=== PATIENT | female | born 1995 | race Caucasian/White ===

== ENCOUNTER 2018-05-11 09:38 | Emergency (ER) | payer BC, MEDICAID ==
[~2018-05-11 09:38] MED LIST: ACY200 PO; BACDS PO; BUDE90AE2 IH; DICY10CA11 PO; ESTROGEN PATCH TD; FISH OIL; LEVA15HF IH; LEVO150T78 PO; LOR5 PO; MULTIVIT; RANI25VI5 INJ; RESCUE INHALER; URSO500T5 PO; VIT D
[2018-05-11 10:00] VITALS: BP 100/70
[2018-05-11] MEDS ORDERED: IBUPROFEN 600 MG TAB PO ONE (10:15)
[2018-05-11] MEDS ORDERED: NS(*) 0.9% 1000 ML BAG 1,000 ML IV ONE (10:15)
[2018-05-11 10:32] LABS: PLATELET COUNT, AUTOMATED 170 K/uL (150-450)
[2018-05-11] MEDS: ONDANSETRON 4 MG/2 ML VIAL IVP ONE (10:50)
--- NOTE | 2018-05-11 11:23 | RADIOLOGY IMAGING REPORT ---
FACILITY: [facility] PATIENT NAME: Leyda Trevino : 1995 MR: [id number] V: [id number] EXAM DATE: ORDERING PHYSICIAN: HOLLY SCHULER TECHNOLOGIST: Location: [facility] Patient: Leyda Trevino : 1995 Visit/Account:[id number] Date of Sevice: 05/11/2018 CHEST PA AND LAT COMPARISONS: 2 view chest dated July 20, 2013 ADDITIONAL PERTINENT HISTORY: Fever FINDINGS: Cardiomediastinal silhouette: Negative. Pulmonary vasculature: Negative. Lung ga: Negative. Pleural spaces: Negative. Osseous structures: Patient status post previous posterior interbody fusion of the mid thoracic spin e through the upper lumbar spine. No acute appearing bony abnormalities. Surrounding soft tissues: Negative. IMPRESSION: No evidence of acute cardiopulmonary disease. Report Dictated By: Kei Aparicio MD at 05/11/2018 11:18 AM Report E-Signed By: Kei Aparicio MD at 05/11/2018 11:19 AM WSN:[email or web address]
--- NOTE | 2018-05-11 11:51 | ER Report ---
History and Physical Time Seen By MD: 11:45 Hx. of Stated Complaint: [facility], her strep and mono test were negative. however her temp was 103.8, and she was tachycardic at 135. she is complaining of a swollen throat, dizzy spells. pt developed red blotchy spots to legs that are painfult to the touch. 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 She has no known sick contacts, has not been on any immunocompromising medications recently, and no recent travel. She has been tolerating fluids, denies abdominal pain, vomiting, diarrhea, constipation, any UTI symptoms, or headaches. REVIEW OF SYSTEMS: Constitutional: above Eyes: No discharge. ENT: above Cardiovascular: No chest pain, no palpitations. Respiratory: No cough, no shortness of breath. Gastrointestinal: No abdominal pain, no vomiting; mild nausea Genitourinary: No hematuria. Musculoskeletal: No back pain. Skin: above Neurological: No headache. Remainder of the 14 system rev: Yes Allergies: Coded Allergies: albuterol (Verified Allergy, Unknown, 07/30/14) lorazepam (Verified Allergy, Unknown, 07/30/14) Uncoded Allergies: antibiotic unknown (Allergy, Mild, hives, 11/14/13) PLATELETS (Allergy, Unknown, 07/30/14) Home Meds Reported Medications Levothyroxine Sodium (LEVOTHYROXINE SODIUM) 150 Mcg Tablet, 120 MCG PO QDAY 07/30/14 [Estrogen Patch] No Conflict Check, 1 PATCH TD QWEEKF 07/30/14 Budesonide (PULMICORT FLEXHALER) 90 Mcg Aer.pow.ba, 80 MCG IH BID, MCG INHALE 90 MCG TWICE DAILY 07/30/14 Levalbuterol Tartrate (XOPENEX HFA) 15 Gm Hfa.aer.ad, 15 GM IH BID PRN for SHORTNESS OF BREATH 07/30/14 [Rescue Inhaler] No Conflict Check 05/12/12 Ranitidine Hcl (Zantac) 25 Mg/1 Ml Vial, 50 MG INJ Q12H 05/12/12 [Vit D] No Conflict Check, 0 Refills 06/10/11 Discontinued Reported Medications Dicyclomine Hcl (DICYCLOMINE HCL) 10 Mg Capsule, 10 MG PO QID PRN for PAIN, CAPSULE 07/30/14 Hx Smoking: No Smoking Status: Never Smoker Exposure to Second Hand Smoke?: No Constitutional Vital Sign - Last 24 Hours 05/11/18 05/11/18 05/11/18 05/11/18 09:43 09:44 09:53 10:00 Temp 103.0 Pulse 123 130 Resp 18 B/P (MAP) 103/64 (77) 103/64 100/70 (80) Pulse Ox 95 98 O2 Delivery Room Air 05/11/18 05/11/18 05/11/18 05/11/18 10:08 10:23 10:38 10:53 Pulse 121 110 106 100 Pulse Ox 93 92 95 95 05/11/18 05/11/18 05/11/18 10:58 11:13 11:28 Pulse 108 98 99 Pulse Ox 95 94 94 Physical Exam General Appearance: The patient is alert, has no immediate need for airway protection and no signs of toxicity. [ ] Eyes: Pupils equal and round no pallor or injection. ENT, Mouth: Mucous membranes are moist. Ulcerations noted r upper soft palate, l upper, l lower lip. Mild erythema of tonsils; no exudates. No lip involvement Respiratory: There are no retractions, lungs are clear to auscultation. Cardiovascular: tachycardia, no murmurs Gastrointestinal: Abdomen is soft and non tender, no masses, bowel sounds normal. Neurological: alert, oriented x 3 Skin: warm and dry; 1-2 cm mildly tender patches/plaques noted on anterior legs. No palm/sole involvement Musculoskeletal: Neck is supple non tender. Extremities are nontender (other than exanthem above), nonswollen and have full range of motion. DIFFERENTIAL DIAGNOSIS: After history and physical exam differential diagnosis was considered for sepsis, menigococcemia, lyme or other arthropod dis, syphillis, or other emergent disease Medical Decision Making Data Points Result Diagram: 05/11/18 1015 05/11/18 1015 Laboratory Hematology Test 05/11/18 10:15 05/11/18 10:27 Red Blood Count 3.97 M/uL (4.17-5.56) Mean Corpuscular Volume 95.4 fL (80.0-96.0) Mean Corpuscular Hemoglobin 33.3 pg (26.0-33.0) Mean Corpuscular Hemoglobin Concent 34.9 g/dL (32.0-36.0) Red Cell Distribution Width 14.4 % (11.5-14.5) Mean Platelet Volume 7.9 fL (7.2-11.1) Neutrophils (%) (Auto) 79.6 % (39.4-72.5) Lymphocytes (%) (Auto) 10.9 % (17.6-49.6) Monocytes (%) (Auto) 9.1 % (4.1-12.4) Eosinophils (%) (Auto) 0.1 % (0.4-6.7) Basophils (%) (Auto) 0.3 % (0.3-1.4) Nucleated RBC Relative Count (auto) 0.0 /100WBC Neutrophils # (Auto) 7.6 K/uL (2.0-7.4) Lymphocytes # (Auto) 1.0 K/uL (1.3-3.6) Monocytes # (Auto) 0.9 K/uL (0.3-1.0) Eosinophils # (Auto) 0.0 K/uL (0.0-0.5) Basophils # (Auto) 0.0 K/uL (0.0-0.1) Nucleated RBC Absolute Count (auto) 0.00 K/uL Sodium Level 140 mmol/L (137-145) Potassium Level 3.5 mmol/L (3.5-5.0) Chloride Level 103 mmol/L (98-107) Carbon Dioxide Level 24 mmol/L (22-31) Blood Urea Nitrogen 12 mg/dl (7-18) Creatinine 0.90 mg/dl (0.52-1.04) Glomerular Filtration Rate Calc > 60.0 Random Glucose 96 mg/dl (75-110) Calcium Level 8.7 mg/dl (8.4-10.2) Total Bilirubin 0.8 mg/dl (0.2-1.3) Aspartate Amino Transf (AST/SGOT) 33 U/L (0-35) Alanine Aminotransferase (ALT/SGPT) 43 U/L (0-56) Alkaline Phosphatase 97 U/L (0-126) Total Protein 7.2 g/dl (6.3-8.2) Albumin 4.2 g/dl (3.5-5.0) Lipase 54 U/L (23-300) Urine Color Yellow Urine Clarity Clear Urine pH 6.5 pH (4.8-9.5) Urine Specific [place] 1.010 Urine Protein Trace mg/dL (NEGATIVE) Urine Glucose (UA) Negative mg/dL (NEGATIVE) Urine Ketones Negative mg/dL (NEGATIVE) Urine Blood Trace intact (NEGATIVE) Urine Nitrite Negative (NEGATIVE) Urine Bilirubin Negative (NEGATIVE) Urine Urobilinogen 0.2 mg/dL (0.2-1.9) Urine Leukocyte Esterase Negative (NEGATIVE) Urine RBC <1 /HPF (0-2/HPF) Urine WBC 1 /HPF (0-5/HPF) Urine Squamous Epithelial Cells None /LPF (</=FEW) Urine Bacteria Negative /HPF (NONE-FEW) Urine Mucus Few /HPF (NONE-FEW) Urine HCG, Qualitative Negative (NEGATIVE) Chemistry Test 05/11/18 10:15 05/11/18 10:27 White Blood Count 9.6 k/uL (4.5-11.0) Red Blood Count 3.97 M/uL (4.17-5.56) Hemoglobin 13.2 g/dL (12.0-16.0) Hematocrit 37.9 % (34.0-47.0) Mean Corpuscular Volume 95.4 fL (80.0-96.0) Mean Corpuscular Hemoglobin 33.3 pg (26.0-33.0) Mean Corpuscular Hemoglobin Concent 34.9 g/dL (32.0-36.0) Red Cell Distribution Width 14.4 % (11.5-14.5) Platelet Count 170 K/uL (150-450) Mean Platelet Volume 7.9 fL (7.2-11.1) Neutrophils (%) (Auto) 79.6 % (39.4-72.5) Lymphocytes (%) (Auto) 10.9 % (17.6-49.6) Monocytes (%) (Auto) 9.1 % (4.1-12.4) Eosinophils (%) (Auto) 0.1 % (0.4-6.7) Basophils (%) (Auto) 0.3 % (0.3-1.4) Nucleated RBC Relative Count (auto) 0.0 /100WBC Neutrophils # (Auto) 7.6 K/uL (2.0-7.4) Lymphocytes # (Auto) 1.0 K/uL (1.3-3.6) Monocytes # (Auto) 0.9 K/uL (0.3-1.0) Eosinophils # (Auto) 0.0 K/uL (0.0-0.5) Basophils # (Auto) 0.0 K/uL (0.0-0.1) Nucleated RBC Absolute Count (auto) 0.00 K/uL Glomerular Filtration Rate Calc > 60.0 Calcium Level 8.7 mg/dl (8.4-10.2) Total Bilirubin 0.8 mg/dl (0.2-1.3) Aspartate Amino Transf (AST/SGOT) 33 U/L (0-35) Alanine Aminotransferase (ALT/SGPT) 43 U/L (0-56) Alkaline Phosphatase 97 U/L (0-126) Total Protein 7.2 g/dl (6.3-8.2) Albumin 4.2 g/dl (3.5-5.0) Lipase 54 U/L (23-300) Urine Color Yellow Urine Clarity Clear Urine pH 6.5 pH (4.8-9.5) Urine Specific [place] 1.010 Urine Protein Trace mg/dL (NEGATIVE) Urine Glucose (UA) Negative mg/dL (NEGATIVE) Urine Ketones Negative mg/dL (NEGATIVE) Urine Blood Trace intact (NEGATIVE) Urine Nitrite Negative (NEGATIVE) Urine Bilirubin Negative (NEGATIVE) Urine Urobilinogen 0.2 mg/dL (0.2-1.9) Urine Leukocyte Esterase Negative (NEGATIVE) Urine RBC <1 /HPF (0-2/HPF) Urine WBC 1 /HPF (0-5/HPF) Urine Squamous Epithelial Cells None /LPF (</=FEW) Urine Bacteria Negative /HPF (NONE-FEW) Urine Mucus Few /HPF (NONE-FEW) Urine HCG, Qualitative Negative (NEGATIVE) Urinalysis Test 05/11/18 10:27 Urine Color Yellow Urine Clarity Clear Urine pH 6.5 pH (4.8-9.5) Urine Specific [place] 1.010 Urine Protein Trace mg/dL (NEGATIVE) Urine Glucose (UA) Negative mg/dL (NEGATIVE) Urine Ketones Negative mg/dL (NEGATIVE) Urine Blood Trace intact (NEGATIVE) Urine Nitrite Negative (NEGATIVE) Urine Bilirubin Negative (NEGATIVE) Urine Urobilinogen 0.2 mg/dL (0.2-1.9) Urine Leukocyte Esterase Negative (NEGATIVE) Urine RBC <1 /HPF (0-2/HPF) Urine WBC 1 /HPF (0-5/HPF) Urine Squamous Epithelial Cells None /LPF (</=FEW) Urine Bacteria Negative /HPF (NONE-FEW) Urine Mucus Few /HPF (NONE-FEW) Urine HCG, Qualitative Negative (NEGATIVE) ED Course/Re-evaluation ED Course Pt appears well, though febrile and tachycardic; findings are most c/w viral/vasculitis, as skin findings are c/w erythema nodosum. Improves with IVF, labs/imaging/ua unremarkable for e/o bacterial illness; this is most likely viral though I councelled pt on potential for vasculitis, neoplastic cause; she understands need to folllow up closely with pcm and need for further referral if symptoms do not resolve; she understands strict rtn precautions for worsening symptoms or any concerns. Decision to Disposition Date: May 11, 2018 Decision to Disposition Time: 13:45 Depart Departure Latest Vital Signs Vital Signs Date Time Temp Pulse Resp B/P (MAP) Pulse Ox O2 Delivery O2 Flow Rate FiO2 05/11/18 11:28 99 94 05/11/18 10:00 100/70 (80) 05/11/18 09:44 103.0 18 Room Air Impression: Primary Impression: Febrile illness, acute Additional Impression: Erythema nodosum Condition: Improved Disposition: HOME OR SELF-CARE Referrals: TODD HAWK MD (PCP) 5 Days Departure Forms: ER Transition Record, Medications Reconciliation, Off Work/School Form, School or Work Release?: Work Number of days to be released: 2 Patient Portal Information Patient Instructions: Fever in Adults (ED) Additional Instructions: As we discussed, please return immediately if feeling worse, or for new or different concerns. The area on your legs is called erythema nodosum. This can be associated with viruses but can also be associated with vasculitis or other conditions. If your symptoms do not improve in the next 3-5 days, please seek further care or return to the ED for further assessment. Problem Qualifiers HOLLY SCHULER MD May 11, 2018 11:51
== END 2018-05-11 13:28 | disposition home or self-care (01) ==
LOC: ER 09:53
DX: R50.9 Fever, unspecified (principal); L52 Erythema nodosum
CPT/HCPCS: 81001; 81025; 83690; 85025; 96360; 99283; J7030; 71046; 82040; 82247; 82310; 82374; 82435; 82565; 82947; 84075; 84132; 84155; 84295; 84450; 84460; 84520; J2405

== ENCOUNTER → 2018-06-24 | Outpatient (CLI) | payer BC ==
[~2018-06-24] MED LIST changes: +ASPI-1471 PO
[2018-06-24 13:31] LABS: PLATELET COUNT, AUTOMATED 228 K/uL (150-450)
[2018-06-24 14:29] LABS: INR 0.96
== END ==
LOC: LAB 13:10
PROVIDERS: ATTEND Internal Medicine
DX: C49.9 Malignant neoplasm of connective and soft tissue, unspecified (principal)
CPT/HCPCS: 36415; 82040; 82247; 82310; 82374; 82435; 82565; 82947; 83615; 84075; 84132; 84155; 84295; 84439; 84443; 84450; 84460; 84520; 85025; 85379; 85610; 85651; 86140

== ENCOUNTER 2018-06-28 16:12 | Emergency (ER) | payer BC ==
--- NOTE | 2018-06-28 16:32 | ER Report ---
History and Physical Time Seen By MD: 16:32 Hx. of Stated Complaint: Pt. having chest pain, but with recent cold with productive cough with clear/yellow/thick sputum. 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 Febrile >103 over a month ago, told viral. Afebrile in triage. Well-appearing. HPI/ROS CHIEF COMPLAINT: Shortness of breath, chest pain HISTORY OF PRESENT ILLNESS: 22-year-old female patient presents to emergency room with complaint shortness of breath and chest pain. Patient states that she's been having problems since this morning. She states she woke up about 4:00 in the morning and was feeling short of breath. She states she felt as if she is unable to take deep breath. She felt very congested. She did get up and move around and that seemed to help considerably. She denies having any fevers, chills, nausea or vomiting. Patient states she does have a cough and does have shortness of breath. States the chest pain is worse with deep inspiration. She states she is not taking any medication for this. REVIEW OF SYSTEMS: Respiratory: As noted above Cardiovascular: As noted above Gastrointestinal: No vomiting, no abdominal pain. Musculoskeletal: No back pain. Allergies: Coded Allergies: albuterol (Verified Allergy, Unknown, 06/28/18) lorazepam (Verified Allergy, Unknown, 06/28/18) Uncoded Allergies: antibiotic unknown (Allergy, Mild, hives, 11/14/13) PLATELETS (Allergy, Unknown, 07/30/14) Home Meds Active Scripts Levalbuterol Hcl (XOPENEX) 1.25 Mg/3 Ml Vial.neb, 1.25 MG IH Q4-6H, #20 VIAL Prov:SAILAJA SHRESTHA [facility] 06/28/18 Prednisone (PREDNISONE) 20 Mg Tablet, 40 MG PO DAILY, #10 TAB Prov:SAIALJA SHRESTHA [facility] 06/28/18 Azithromycin 250 Mg Tab (AZITHROMYCIN 250 MG TAB) 250 Mg Tablet, 1 TAB PO QDAY, #6 TAB Take 2 tabs today and then 1 tab a day until gone. Prov:SAILAJA SHRESTHA [facility] 06/28/18 Reported Medications Aspirin (ASPIR 81) 81 Mg Tablet.dr, 81 MG PO QDAY, TAB 06/05/18 Budesonide (PULMICORT FLEXHALER) 90 Mcg Aer.pow.ba, 80 MCG IH BID, MCG INHALE 90 MCG TWICE DAILY 07/30/14 [Rescue Inhaler] No Conflict Check 05/12/12 [Vit D] No Conflict Check, 0 Refills 06/10/11 Past Medical/Surgical History Patient has a past medical history of DVT, Harrington sarcoma. Patient has a surgical history of a craniotomy to remove tumor, Broviac place ment, cervical fusion, bone marrow transplant. Reviewed Nurses Notes: Yes Hx Smoking: No Smoking Status: Never Smoker Exposure to Second Hand Smoke?: No Constitutional Vital Sign - Last 24 Hours 06/28/18 06/28/18 06/28/18 06/28/18 16:17 16:18 16:30 16:45 Pulse 102 90 95 Resp 16 24 7 B/P (MAP) 145/79 (101) 145/79 123/44 (70) Pulse Ox 95 97 O2 Delivery Room Air 06/28/18 06/28/18 06/28/18 06/28/18 16:50 16:55 17:00 17:01 Pulse 95 102 109 Resp 24 16 16 B/P (MAP) 104/51 (68) 06/28/18 06/28/18 06/28/18 06/28/18 17:05 17:10 17:25 17:30 Pulse 117 116 Resp 27 33 14 B/P (MAP) 117/82 (94) Pulse Ox 97 97 98 06/28/18 06/28/18 06/28/18 06/28/18 17:40 17:45 18:00 18:05 Pulse 121 113 114 107 Resp 15 15 11 12 B/P (MAP) 110/61 (77) Pulse Ox 96 98 06/28/18 06/28/18 06/28/18 06/28/18 18:20 18:30 18:35 18:40 Pulse 112 111 110 Resp 12 9 9 B/P (MAP) 116/47 (70) Pulse Ox 97 97 98 Physical Exam General Appearance: The patient is alert, has no immediate need for airway protection and no current signs of toxicity. Respiratory: Chest is non tender, lungs are diminished to auscultation. Cardiac: regular rate and rhythm Gastrointestinal: Abdomen is soft and non tender, no masses, bowel sounds normal. Musculoskeletal: Neck: Neck is supple and non tender. Extremities have full range of motion and are non tender. Skin: No rashes or lesions. DIFFERENTIAL DIAGNOSIS: After history and physical exam differential diagnosis was considered for shortness of breath including but not limited to pulmonary infectious process, COPD, asthma, pulmonary embolus and congestive heart failure. Medical Decision Making Data Points Result Diagram: 06/28/18 1650 06/28/18 1650 Laboratory Hematology Test 06/28/18 16:50 06/28/18 17:46 Red Blood Count 4.05 M/uL (4.17-5.56) Mean Corpuscular Volume 96.1 fL (80.0-96.0) Mean Corpuscular Hemoglobin 32.8 pg (26.0-33.0) Mean Corpuscular Hemoglobin Concent 34.1 g/dL (32.0-36.0) Red Cell Distribution Width 14.7 % (11.5-14.5) Mean Platelet Volume 7.3 fL (7.2-11.1) Neutrophils (%) (Auto) 58.5 % (39.4-72.5) Lymphocytes (%) (Auto) 30.4 % (17.6-49.6) Monocytes (%) (Auto) 8.7 % (4.1-12.4) Eosinophils (%) (Auto) 1.9 % (0.4-6.7) Basophils (%) (Auto) 0.5 % (0.3-1.4) Nucleated RBC Relative Count (auto) 0.1 /100WBC Neutrophils # (Auto) 4.6 K/uL (2.0-7.4) Lymphocytes # (Auto) 2.4 K/uL (1.3-3.6) Monocytes # (Auto) 0.7 K/uL (0.3-1.0) Eosinophils # (Auto) 0.1 K/uL (0.0-0.5) Basophils # (Auto) 0.0 K/uL (0.0-0.1) Nucleated RBC Absolute Count (auto) 0.00 K/uL D-Dimer Quantitative (PE/DVT) 0.37 ug/ml (0-0.50) Sodium Level 141 mmol/L (137-145) Potassium Level 3.5 mmol/L (3.5-5.0) Chloride Level 101 mmol/L (98-107) Carbon Dioxide Level 27 mmol/L (22-31) Blood Urea Nitrogen 20 mg/dl (7-18) Creatinine 1.00 mg/dl (0.52-1.04) Glomerular Filtration Rate Calc > 60.0 Random Glucose 92 mg/dl (75-110) Calcium Level 9.4 mg/dl (8.4-10.2) Total Bilirubin 0.3 mg/dl (0.2-1.3) Aspartate Amino Transf (AST/SGOT) 31 U/L (0-35) Alanine Aminotransferase (ALT/SGPT) 64 U/L (0-56) Alkaline Phosphatase 131 U/L (0-126) Troponin I < 0.012 ng/ml Total Protein 7.8 g/dl (6.3-8.2) Albumin 4.3 g/dl (3.5-5.0) Human Chorionic Gonadotropin, Qual Negative (NEGATIVE) Urine Color Yellow Urine Clarity Clear Urine pH 6.0 pH (4.8-9.5) Urine Specific [place] 1.021 Urine Protein Negative mg/dL (NEGATIVE) Urine Glucose (UA) Negative mg/dL (NEGATIVE) Urine Ketones Negative mg/dL (NEGATIVE) Urine Blood Negative (NEGATIVE) Urine Nitrite Negative (NEGATIVE) Urine Bilirubin Negative (NEGATIVE) Urine Urobilinogen Negative mg/dL (0.2-1.9) Urine Leukocyte Esterase Negative (NEGATIVE) Urine RBC None /HPF (0-2/HPF) Urine WBC <1 /HPF (0-5/HPF) Urine Squamous Epithelial Cells None /LPF (</=FEW) Urine Bacteria Negative /HPF (NONE-FEW) Urine Mucus Few /HPF (NONE-FEW) Chemistry Test 06/28/18 16:50 06/28/18 17:46 White Blood Count 7.8 k/uL (4.5-11.0) Red Blood Count 4.05 M/uL (4.17-5.56) Hemoglobin 13.3 g/dL (12.0-16.0) Hematocrit 38.9 % (34.0-47.0) Mean Corpuscular Volume 96.1 fL (80.0-96.0) Mean Corpuscular Hemoglobin 32.8 pg (26.0-33.0) Mean Corpuscular Hemoglobin Concent 34.1 g/dL (32.0-36.0) Red Cell Distribution Width 14.7 % (11.5-14.5) Platelet Count 221 K/uL (150-450) Mean Platelet Volume 7.3 fL (7.2-11.1) Neutrophils (%) (Auto) 58.5 % (39.4-72.5) Lymphocytes (%) (Auto) 30.4 % (17.6-49.6) Monocytes (%) (Auto) 8.7 % (4.1-12.4) Eosinophils (%) (Auto) 1.9 % (0.4-6.7) Basophils (%) (Auto) 0.5 % (0.3-1.4) Nucleated RBC Relative Count (auto) 0.1 /100WBC Neutrophils # (Auto) 4.6 K/uL (2.0-7.4) Lymphocytes # (Auto) 2.4 K/uL (1.3-3.6) Monocytes # (Auto) 0.7 K/uL (0.3-1.0) Eosinophils # (Auto) 0.1 K/uL (0.0-0.5) Basophils # (Auto) 0.0 K/uL (0.0-0.1) Nucleated RBC Absolute Count (auto) 0.00 K/uL D-Dimer Quantitative (PE/DVT) 0.37 ug/ml (0-0.50) Glomerular Filtration Rate Calc > 60.0 Calcium Level 9.4 mg/dl (8.4-10.2) Total Bilirubin 0.3 mg/dl (0.2-1.3) Aspartate Amino Transf (AST/SGOT) 31 U/L (0-35) Alanine Aminotransferase (ALT/SGPT) 64 U/L (0-56) Alkaline Phosphatase 131 U/L (0-126) Troponin I < 0.012 ng/ml Total Protein 7.8 g/dl (6.3-8.2) Albumin 4.3 g/dl (3.5-5.0) Human Chorionic Gonadotropin, Qual Negative (NEGATIVE) Urine Color Yellow Urine Clarity Clear Urine pH 6.0 pH (4.8-9.5) Urine Specific [place] 1.021 Urine Protein Negative mg/dL (NEGATIVE) Urine Glucose (UA) Negative mg/dL (NEGATIVE) Urine Ketones Negative mg/dL (NEGATIVE) Urine Blood Negative (NEGATIVE) Urine Nitrite Negative (NEGATIVE) Urine Bilirubin Negative (NEGATIVE) Urine Urobilinogen Negative mg/dL (0.2-1.9) Urine Leukocyte Esterase Negative (NEGATIVE) Urine RBC None /HPF (0-2/HPF) Urine WBC <1 /HPF (0-5/HPF) Urine Squamous Epithelial Cells None /LPF (</=FEW) Urine Bacteria Negative /HPF (NONE-FEW) Urine Mucus Few /HPF (NONE-FEW) Coagulation Test 06/28/18 16:50 D-Dimer Quantitative (PE/DVT) 0.37 ug/ml Urinalysis Test 06/28/18 17:46 Urine Color Yellow Urine Clarity Clear Urine pH 6.0 pH (4.8-9.5) Urine Specific [place] 1.021 Urine Protein Negative mg/dL (NEGATIVE) Urine Glucose (UA) Negative mg/dL (NEGATIVE) Urine Ketones Negative mg/dL (NEGATIVE) Urine Blood Negative (NEGATIVE) Urine Nitrite Negative (NEGATIVE) Urine Bilirubin Negative (NEGATIVE) Urine Urobilinogen Negative mg/dL (0.2-1.9) Urine Leukocyte Esterase Negative (NEGATIVE) Urine RBC None /HPF (0-2/HPF) Urine WBC <1 /HPF (0-5/HPF) Urine Squamous Epithelial Cells None /LPF (</=FEW) Urine Bacteria Negative /HPF (NONE-FEW) Urine Mucus Few /HPF (NONE-FEW) EKG/Imaging EKG Interpretation 12 lead EKG: Rhythm: normal sinus rhythm [place]: normal QRS: normal ST segments: normal Imaging Exam type: CHEST PA AND LAT History: Cough, chest pain, shortness of breath x2 days Comparison: May 11, 2018. Findings: Again noted are postsurgical changes from posterior fusion of the mid to lower thoracic spine and upper lumbar spine. There is no evidence of acute lobar infiltrates or pleural effusions. The cardiac silhouette is normal in size. IMPRESSION: 1. No acute cardiopulmonary process is seen Report Dictated By: Layla Varela MD at 06/28/2018 5:25 PM Report E-Signed By: Layla Varela MD at 06/28/2018 5:26 PM ED Course/Re-evaluation ED Course Patient was admitted to an exam room, history and physical were obtained. Differential diagnoses were considered. On examination lungs are diminished throughout, heart is regular, abdomen is soft and nontender. Patient had pain with movement of the left shoulder, however on physical exam appears that that is more in the pectoralis muscle. Patient also pain to the left ankle, seemed to be more across the tendon that runs across top of the foot. A CBC, CMP, urinalysis, EKG, troponin were done. Chest x-ray was also done which was read by the radiologist as normal. I looked at it did appear that she did have some peribronchial thickening. Labs were unremarkable. I discussed the findings with the patient. I will she does have bronchitis as well as she's had a cough. We discussed recent patient on steroids. She is initially rather resistant, concerned about having been on steroids in the past which resulted in significant weight gain. I discussed the patient will be for a short period of time, 5 days. She ultimately verbalize agreement. We will place her on prednisone, azithromycin and a Xopenex nebulizer treatment. Patient did receive Xopenex here in the emergency room and states she did feel significant improvement. We'll go ahead and discharge patient home at this time she is to return to emergency room if condition worsens. She is to follow-up with her primary care provider in the next week. Decision to Disposition Date: Jun 28, 2018 Decision to Disposition Time: 18:41 Depart Departure Latest Vital Signs Vital Signs Date Time Temp Pulse Resp B/P (MAP) Pulse Ox O2 Delivery O2 Flow Rate FiO2 06/28/18 18:40 110 9 98 06/28/18 18:30 116/47 (70) 06/28/18 16:18 Room Air Impression: Primary Impression: Bronchitis Condition: Improved Disposition: HOME OR SELF-CARE Referrals: TODD HAWK MD (PCP) New Scripts Levalbuterol Hcl (XOPENEX) 1.25 Mg/3 Ml Vial.neb 1.25 MG IH Q4-6H, #20 VIAL Prov: SAILAJA SHRESTHA 06/28/18 Prednisone (PREDNISONE) 20 Mg Tablet 40 MG PO DAILY, #10 TAB Prov: SAILAJA SHRESTHA 06/28/18 Azithromycin 250 Mg Tab (AZITHROMYCIN 250 MG TAB) 250 Mg Tablet 1 TAB PO QDAY, #6 TAB Take 2 tabs today and then 1 tab a day until gone. Prov: SAILAJA SHRESTHA 06/28/18 Patient Instructions: Acute Bronchitis (ED) Additional Instructions: Increase fluid intake. Get plenty of rest. Limit activity by pain. Follow up with your primary care provider in the next week. Return to the ER if condition worsens. Use the medication as prescribed. SAILAJA SHRESTHA Jun 28, 2018 16:32
[2018-06-28] MEDS ORDERED: NS(*) 0.9% 500 ML BAG 500 ML IV ONE (16:42)
[2018-06-28] MEDS ORDERED: LEVALBUTEROL 1.25 MG/3 ML NEB NEB ONE (16:45)
--- NOTE | 2018-06-28 17:05 | EKG ---
FACILITY: [facility] - [place] PATIENT NAME: RENARD TRIPP : [id number] MR: [id number] V: [id number] EXAM DATE: ORDERING PHYSICIAN: SAILAJA SHRESTHA TECHNOLOGIST: CHET Test Reason : SOB, CP Blood Pressure : / mmHG Vent. Rate : 090 BPM Atrial Rate : 090 BPM P-R Int : 154 ms QRS Dur : 080 ms QT Int : 356 ms P-R-T Axes : 034 019 032 degrees QTc Int : 435 ms Normal sinus rhythm Normal ECG No previous ECGs available Confirmed by NERI FAYE ([id number]) on 06/28/2018 6:57:09 PM Referred By: FADY Confirmed By:NERI FAYE
[2018-06-28 17:21] LABS: PLATELET COUNT, AUTOMATED 221 K/uL (150-450)
--- NOTE | 2018-06-28 17:53 | RADIOLOGY IMAGING REPORT ---
FACILITY: [facility] PATIENT NAME: Leyda Trevino : 1995 MR: [id number] V: [id number] EXAM DATE: [id number] ORDERING PHYSICIAN: SAILAJA SHRESTHA TECHNOLOGIST: [place] [facility] [place]: Leyda Trevino : 1995 Visit/Account:[id number] Date of Sevice: 06/28/2018 Exam type: CHEST PA AND LAT History: Cough, chest pain, shortness of breath x2 days Comparison: May 11, 2018. Findings: Again noted are postsurgical changes from posterior fusion of the mid to lower thoracic spine and upp er lumbar spine. There is no evidence of acute lobar infiltrates or pleural effusions. The cardiac silhouette is normal in size. IMPRESSION: 1. No acute cardiopulmonary process is seen Report Dictated By: Layla Varela MD at 06/28/2018 5:25 PM Report E-Signed By: Layla Varela MD at 06/28/2018 5:26 PM WSN:[email or web address]
[2018-06-28 18:30] VITALS: BP 116/47
[2018-06-28] MEDS ORDERED: LEVA1.2527 IH (18:39)
[2018-06-28] MEDS ORDERED: PRED20TA6 PO (18:39)
[2018-06-28] MEDS ORDERED: AZIT-18 PO (18:39)
== END 2018-06-28 18:54 | disposition home or self-care (01) ==
LOC: ER 16:15
DX: J40 Bronchitis, not specified as acute or chronic (principal)
CPT/HCPCS: 81001; 84484; 84703; 85025; 85379; 93005; 94640; 96360; 99284; J7040; 71046; 82040; 82247; 82310; 82374; 82435; 82565; 82947; 84075; 84132; 84155; 84295; 84450; 84460; 84520

== ENCOUNTER 2018-08-16 15:26 | Outpatient (RCR) | payer BC, MEDICAID ==
[2018-06-05 12:23] VITALS: BP 107/76
--- NOTE | 2018-06-06 22:20 | ONCOLOGY CONSULTATION ---
EVENT DATE: June 05, 2018 CHIEF COMPLAINT/REASON FOR VISIT Ms. 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 No disease since that time, thankfully. 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 This was first diagnosed at age 10. She received maximum dose of anthracyclines during her treatment, especially with her relapse at age 14. No evidence of disease since that time. The lesion was in the head, neck, spine region. I do not yet have her outside records, and so I will summarize them in a later visit more thoroughly. I discussed her history in great detail today. Pertinent findings include a history of a DVT, multiple surgeries, bone marrow transplant in 2010. As a result of all of her treatment, she has lung disease, depression, GERD, cataracts. She has a strong family history of thyroid disease, and they are concerned about potential for thyroid disease. She required a Harrison fundoplication for significant GERD in 2012 approximately. She required a back surgery in 2008 and had a spinal fusion due to damage from her disease. 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 Currently lives alone. She is presenting with her mother. FAMILY HISTORY Remarkable for hypothyroidism. No significant history of cancer in the family. REVIEW OF SYSTEMS CONSTITUTIONAL: No fevers, chills, significant weight change. HEENT: No headache or vision changes. CARDIOVASCULAR: No chest pain, dyspnea on exertion, or edema. RESPIRATORY: No shortness of breath, wheeze, cough currently. GASTROINTESTINAL: No nausea or vomiting. GENITOURINARY: No dysuria or hematuria. MUSCULOSKELETAL: No weakness or joint pain. PSYCHIATRIC: No anxiety or depression. ENDOCRINE: No heat or cold intolerance. She does have fatigue. Positive strong family history of thyroid problems. HEMATOLOGIC/LYMPHATIC: No issues with concerning lumps or bumps. She has noted increased easy bruising recently. INFECTIOUS DISEASE: She had a recent viral infection with erythema nodosum, and it is improving. Remainder of 14-point review of systems otherwise negative. PHYSICAL EXAMINATION VITAL SIGNS: BP 107/76, pulse 93, respiratory rate 16, temperature 98.1 Fahrenheit, oxygen saturation 95% on room air. Weight 72 kg. Height 157.5 cm. Pain zero/10. Fatigue 4/10. GENERAL: Stable condition, resting comfortably in the chair. HEENT: Normocephalic, atraumatic. MUSCULOSKELETAL: She does have altered anatomy, likely due to her prior history of steroids and surgery. She has a large medial midline back scar as well as a second scar that extends to the left on her back. This midline scar was more recent from recent spinal fusion surgery. CARDIOVASCULAR: Regular rate and rhythm. LUNGS: Clear. ABDOMEN: Soft, nontender. EXTREMITIES: No clubbing, cyanosis, or edema. Remainder of physical exam otherwise unremarkable. IMPRESSION AND PLAN Ms. Trevino is a pleasant, 22-year-old female with the followin. History of Harrington's sarcoma, relapsed, but now in complete remission. She is hopefully cured. Given her history of relapse, we need to pay very close attention to her. Plan to get MRIs of the spine where her disease occurred, as well as a CT of the chest. Given her history of full-dose anthracycline over her lifetime dose, she needs to annual echoes. She also needs basic followup including investigations of thyroid function and basic labs. We will go ahead and get those today. Imaging should be done at least annually unless she is having symptoms of concern. We discussed the diagnosis, treatment options, and natural history of Harrington's. We had a very good conversation. [facility] plan [facility] and then I will see her again after the above studies are done. I answered all her questions today. BILLING New patient level 4. Total time 50 minutes, counseling time 40. MTDD
--- NOTE | 2018-06-30 13:53 | RADIOLOGY IMAGING REPORT ---
FACILITY: [facility] - [place] PATIENT NAME: Leyda Trevino : 1995 MR: [id number] V: [id number] EXAM DATE: ORDERING PHYSICIAN: JOE [place] TECHNOLOGIST: Location: [facility] Patient: Leyda Trevino : 1995 Visit/Account:[id number] Date of Sevice: 06/30/2018 CHEST W W/O CONTRAST History: Sarcoma ADDITIONAL CLINICAL HISTORY: None TECHNIQUE: Contiguous axial images were performed through the chest to the level of the adrenal gla nds with and without IV contrast. Coronal and sagittal reformatting was also performed.Dose Lowerin g Technique One of the following dose optimization techniques was utilized in the performance of this exam: Autom ated exposure control; adjustment of the mA and/or kV according to the patient's size; or use of an i terative reconstruction technique. Specific details can be referenced in the facility's radiology C T exam operational policy. Contrast: 75 mL [id number] COMPARISON STUDIES: CTA chest July 30, 2014. Lungs / Pleura: There are patchy groundglass nodular opacities in the right upper lobe. There is a thin linear band of consolidation in the left lower lobe with interspersed calcifications which is s uggestive of scarring. And appears similar to the prior study Mediastinum/nodes: Electrode is seen coursing along the anterior left lateral aspect of the thoracic spine which is incompletely imaged Heart and vessels: . There are collateral vessels appear to extend from the left innominate vein in to the upper left side of the neck and along the left side of the mediastinum Musculoskeletal / Body wall: Again noted are postsurgical changes from posterior fusion from T8 to T12 which are incompletely imaged. There has been partial resection of the posterior aspect the left ninth rib Upper abdomen: negative. IMPRESSION: There patchy groundglass nodular opacities in the right upper lobe. These could represent an acute i nfectious/inflammatory process given the clinical history of recent cough and chest pain. These were not apparent on the recent chest radiograph from June 28, 2018. Given the clinical history of sa rcoma however close short-term interval follow-up recommended to exclude the less likely possibility pole of the of pulmonary metastases. Postsurgical changes from T8 to T12 with partial resection of the left ninth rib as described above. These changes are relatively stable when compared the prior studies Incidentally noted are collateral vessels that extend from the left innominate vein into the upper le ft side of the neck and along the left-sided mediastinum Left lower lobe scarring Report Dictated By: Layla Varela MD at 06/30/2018 1:26 PM Report E-Signed By: Layla Varela MD at 06/30/2018 1:48 PM WSN:[email or web address]
--- NOTE | 2018-07-07 12:43 | RADIOLOGY IMAGING REPORT ---
FACILITY: [facility] PATIENT NAME: Leyda Trevino : 1995 MR: [id number] V: [id number] EXAM DATE: ORDERING PHYSICIAN: JOE [place] TECHNOLOGIST: Location: [facility] Patient: Leyda Trevino : 1995 Visit/Account:[id number] Date of Sevice: 07/07/2018 MRI Brain with and without contrast Indication: Headaches Comparison: None available Technique: Sagittal T1-weighted, axial FLAIR, T2-weighted T1-weighted, gradient echo, coronal FLAIR, axial diffusion weighted and ADC map images were obtained through the brain. Axial and coronal T1-we ighted fat saturated postcontrast images were also obtained. A total of 15 mL IV MultiHance contrast was administered.. Findings: No evidence of mass, mass effect, or midline shift. No acute intracranial hemorrhage or acute territo rial infarction. Unremarkable appearance of the corpus callosum. Normal posterior pituitary bright spot noted. No restricted diffusion on the diffusion-weighted images. No focal area of abnormal contrast enhancement. Normal flow voids cerebral vasculature. Visualized paranasal sinuses and mastoid air cells appear clear. Bilateral globes are intact. IMPRESSION: 1. No acute intracranial abnormality identified. 2. No focal area of abnormal contrast enhancement. Report Dictated By: Dion Desouza MD at 07/07/2018 12:39 PM Report E-Signed By: Dion Desouza MD at 07/07/2018 12:39 PM WSN:[id number]
--- NOTE | 2018-07-14 11:57 | RADIOLOGY IMAGING REPORT ---
[place] [facility] [place] Leyda Trevino : 1995 MR: [id number] V: [id number] EXAM DATE: ORDERING PHYSICIAN: JOE [place] TECHNOLOGIST: Location: [facility] Patient: Leyda Trevino : 1995 Visit/Account:[id number] Date of Sevice: 07/14/2018 EXAMINATION: MRI Cervical spine without and with intravenous contrast HISTORY: Harrington sarcoma. COMPARISON: None available. TECHNIQUE: Multi-planar, multi-sequence cervical spine MRI was performed before and after IV contras t. CONTRAST: 15 mL of IV MultiHance FINDINGS: Alignment: Straightening of the normal lordosis. Vertebral marrow signal: Negative. Cranio-cervical junction: Negative. Visualized posterior fossa: Postsurgical changes in the occipital bone. Otherwise negative. Soft tissues: Negative. Cervical cord: Negative. Enhancement pattern: Negative. Disc Spaces: C1-2: Negative. C2-3: Negative. C3-4: Negative. C4-5: Negative. C5-6: Negative. C6-7: Negative. C7-T1: Negative. Upper thoracic spine: Negative. IMPRESSION: Straightening of the normal lordosis, which may be positional or secondary to muscle spas m. Otherwise normal cervical spine MRI without and with IV contrast. Report Dictated By: Cristofer Lopez MD at 07/14/2018 11:46 AM Report E-Signed By: Cristofer Lopez MD at 07/14/2018 11:54 AM WSN:[id number]
--- NOTE | 2018-07-21 10:37 | RADIOLOGY IMAGING REPORT ---
FACILITY: [facility] - [place] PATIENT NAME: Leyda Trevino : 1995 MR: [id number] V: [id number] EXAM DATE: ORDERING PHYSICIAN: JOE [place] TECHNOLOGIST: Location: [facility] Patient: Leyda Trevino : 1995 Visit/Account:[id number] Date of Sevice: 07/21/2018 EXAMINATION: T SPINE W W/O CONTRAST INDICATION: Harrington's sarcoma, spinal surgery 2007 COMPARISON: Thoracic spine radiographs June 13, [address] July 30, 2014 TECHNIQUE: Multiplane MR imaging was performed through the thoracic spine without and with iv contras t. 15 multihance injected uneventfully. FINDINGS: Vertebral bodies and posterior elements: Vertebral body heights are normal. Multilevel lower thoracic laminectomy defects. Posterior fusion hardware extends from T8 through the visible lumbar spine. Cord signal: Normal Marrow signal: Normal Alignment: Slight retrolisthesis of T12 on L1. Prevertebral and paraspinal soft tissues: Small chronic postoperative fluid collection between the T8 and T9 spinous processes in region of laminectomy defect exerts no significant mass effect on the ad jacent thecal sac, A small patch of probable scarring along the posterior left lower lobe has increased in size compared to prior chest CT allowing for technique differences. Disc spaces: Multilevel lower thoracic and lumbar disc prostheses better visualized on comparison rad iographs Minimal multilevel disc protrusions result in no canal narrowing. Canal narrowing: No canal narrowing. Foramen: No apparent foraminal narrowing. Enhancement: Hardware artifact partially obscures the canal at the T8, T9, T10 and T12 levels on the postcontrast acquisitions. No apparent abnormality at these levels on the T2 acquisitions. IMPRESSION: 1. No evidence of malignancy within the thoracic spine. 2. Posterior fusion hardware extends from T8 through the visible lumbar spine. 3. Small patch of probable scarring in the posterior left lower lobe has increased in size compared t o prior chest CT allowing for technique differences. Report Dictated By: Michael Burt MD at 07/21/2018 10:17 AM Report E-Signed By: Michael Burt MD at 07/21/2018 10:33 AM WSN:[email or web address]
--- NOTE | 2018-07-28 11:05 | RADIOLOGY IMAGING REPORT ---
FACILITY: [facility] PATIENT NAME: Leyda Trevino : 1995 MR: [id number] V: [id number] EXAM DATE: ORDERING PHYSICIAN: JOE [place] TECHNOLOGIST: Location: [facility] [place] Patient: Leyda Trevino : 1995 Visit/Account:[id number] Date of Sevice: 07/28/2018 Study: MRI lumbar spine without and with gadolinium contrast. Indication: Harrington's sarcoma follow-up Comparison study: MRI of the thoracic spine dated July 21, 2018 Technique:Multiplanar MRI sequences were obtained through the lumbar spine without and with the use o f gadolinium contrast. Contrast utilized: 15 mL MultiHance Findings:The examination demonstrates the presence of normal alignment of the lumbar vertebrae. The p atient is status post extensive thoracolumbar spine surgery. The appearance of the surgical hardware is unchanged. There is no abnormal signal identified within the lumbar or sacral vertebrae. The conus medullaris is located posterior to the T12/L1 disc space level. There is no evidence of abnormality of the lumbar nerve roots. Disc spaces: L1/2: At this level, the patient is status post discectomy and laminectomy. There is no significant n eural foraminal stenosis or spinal stenosis. This level is unchanged. L2/3: At this level, the patient is status post discectomy and laminectomy. There is no significant n eural foraminal stenosis or spinal stenosis. This level is unchanged. L3/4:At this level, there is no significant disc pathology. There is mild facet and ligamentous hyper trophy. There is no significant neural foraminal stenosis or spinal stenosis. L4/5:At this level, there is no significant disc pathology. There is mild facet and ligamentous hyper trophy. There is no significant neural foraminal stenosis or spinal stenosis. L5/S1:At this level, there is no significant disc pathology. There is no significant neural foraminal stenosis or spinal stenosis. Following the administration of gadolinium contrast, there is no abnormal contrast enhancement identi fied. IMPRESSION: Minimal lumbar disc pathology and spondylopathy. The patient is status post extensive tho racolumbar spine surgery. There is no abnormal enhancement identified. Report Dictated By: Vargas Snowden at 07/28/2018 10:55 AM Report E-Signed By: Vargas Snowden at 07/28/2018 11:02 AM WSN:[email or web address]
[~2018-08-16] VITALS: Ht 157.5 cm; Wt 75.3 kg
[~2018-08-16 15:26] MED LIST changes: +AZIT-18 PO; +GADOBENATE 529MG/1ML 15ML VIAL IVP ONE; +INFLUENZA VIRUS VAC 0.5ML SYR IM ONLY ONE; +LEVA1.2527 IH; +PRED20TA6 PO
[2018-08-16 15:28] VITALS: BP 116/80
--- NOTE | 2018-08-29 05:54 | [facility] ONCOLOGY NOTE ---
EVENT DATE: August 16, 2018 CHIEF COMPLAINT/REASON FOR VISIT Leyda is a pleasant 22-year-old female survivor of Harrington sarcoma, first diagnosed at age 10, with a relapse at age 14, who presents for followup. HISTORY OF PRESENT ILLNESS Leyda returns. 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 This was first diagnosed at age 10, and she received a maximum dose of anthracyclines during her treatment, especially with her relapse at age 14. No evidence of disease since that time. Since her last visit, she has had multiple imaging studies, which show some mild degenerative change as well as the hardware present from T8 through her lumbar spine. Thankfully, there was no evidence of relapse. She also had a brain MRI which showed no significant defects. A chest CT showed some ground-glass opacities consistent with an inflammatory process, but the patient is essentially asymptomatic. We are going to continue to watch this. She had numerous lab studies in the last few months, none of which show great significance. Her FSH is elevated, consistent with chemotherapy-induced amenorrhea. She also had mild elevations of her ALT, alkaline phosphatase, and CRP. We will follow these. No new symptoms since our last visit. She does have some complications from her prior treatment, including lung disease, depression, GERD, and cataracts. With regard to the GERD, she required a Harrison fundoplication in 2012. She required back surgery in 2008 and had spinal fusion due to her disease. She also has history of DVT. She is on a baby aspirin. 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 Currently lives alone. She is presenting with her mother. FAMILY HISTORY Remarkable for hypothyroidism. No significant history of cancer in the family. REVIEW OF SYSTEMS CONSTITUTIONAL: No fevers, chills, significant weight change. HEENT: No headache or vision changes. CARDIOVASCULAR: No chest pain, dyspnea on exertion, or edema. RESPIRATORY: No shortness of breath, wheeze, cough currently. GASTROINTESTINAL: No nausea or vomiting. GENITOURINARY: No dysuria or hematuria. MUSCULOSKELETAL: No weakness or joint pain. PSYCHIATRIC: No anxiety or depression. ENDOCRINE: No heat or cold intolerance. She does have fatigue. Positive strong family history of thyroid problems. HEMATOLOGIC/LYMPHATIC: No issues with concerning lumps or bumps. She has noted increased easy bruising recently. INFECTIOUS DISEASE: She had a recent viral infection with erythema nodosum, and it is improving. Remainder of 14-point review of systems otherwise negative. PHYSICAL EXAMINATION VITAL SIGNS: Blood pressure 116/80, pulse 104, respiratory rate 16, temperature 98 Fahrenheit, oxygen saturation 98% on room air. Weight 75.3 kg. Pain 5/10, fatigue 8/10. GENERAL: Stable condition, resting comfortably in the chair. HEENT: Normocephalic, atraumatic. MUSCULOSKELETAL: She does have altered anatomy due to her prior steroids and surgery, with a large midline back surgery as well as a second scar that extends down to the left of her back. CARDIOVASCULAR: Unchanged. LUNGS: Clear. ABDOMEN: Soft and nontender. EXTREMITIES: No clubbing, cyanosis, or edema. IMPRESSION/REPORT/PLAN Ms. Tillman is a pleasant 22-year-old female with the following: History of Harrington sarcoma, relapsed, but now in complete remission. We now have baseline scans including MRIs of the spine as well as a CT of the chest. She had an echocardiogram as well, which should be done every one to two years. Imaging should be done annually at this time unless she has symptoms of concern. We should be able to utilize MRI only, and may be able to discontinue this in the future. It has been eight years since her relapse, but she did have relapse disease. Answered all of her many questions today. BILLING Return visit, level 4. Total time 30 minutes, counseling time 20. MTDD
== END 2018-08-31 ==
LOC: ONC 15:26
PROVIDERS: ATTEND Internal Medicine
DX: Z85.830 Personal history of malignant neoplasm of bone (principal); R53.83 Other fatigue; Z23 Encounter for immunization; Z98.1 Arthrodesis status
CPT/HCPCS: 90471; 90674; 93306; 99202; 99212; A9577; 70553; 71270; 72156; 72157; 72158

== ENCOUNTER 2018-09-29 07:01 | Outpatient (RCR) | payer BC ==
[~2018-09-29 07:01] MED LIST changes: -GADOBENATE 529MG/1ML 15ML VIAL IVP ONE; -INFLUENZA VIRUS VAC 0.5ML SYR IM ONLY ONE
[2018-09-29 08:37] VITALS: BP 114/65
[2018-09-29] MEDS ORDERED: ESCI20TA38 PO (08:40)
--- NOTE | 2018-09-30 00:08 | ONCOLOGY FOLLOW UP NOTE ---
EVENT DATE: September 29, 2018 CHIEF COMPLAINT Followup for Harrington sarcoma. HISTORY OF PRESENT ILLNESS Patient is a 23-year-old female who was seen today in followup. She was diagnosed with Harrington sarcoma at age 10 and relapsed at age 14. Most recent scan showed no evidence of recurrent disease. When seen on 08/16/18, she noted issues with depression. She was started on Lexapro 5 mg daily. She noted some dizziness when she first started this, but this has resolved. She has not noted significant improvement in her symptoms. However, she is managing fairly well and denies any new complaints. 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 She received maximum dose of anthracycline. She then recurred at age 14 at the base of her skull. She had further chemotherapy and then underwent autologous transplant. She has been disease-free since that time with no evidence of relapse. MEDICAL HISTORY 1. Harrington sarcoma, diagnosed at age 10 with relapse at age 14, s/p autologous transplant. 2. Lung disease. 3. Depression. 4. GERD. 5. Cataracts. 6. History of DVT. SURGICAL HISTORY 1. Back surgery, 2008, with spinal fusion. 2. Harrison fundoplication, 2012. FAMILY HISTORY Remarkable for hypothyroidism. No significant history of cancer in the family. SOCIAL HISTORY Patient is single. She has no children. Her family is supportive. 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 She does not smoke or drink alcohol. REVIEW OF SYSTEMS A 12-point review of systems is performed and is negative except as stated above. PHYSICAL EXAMINATION VITAL SIGNS: Blood pressure 114/65, pulse 88, respirations 16, temp 99, O2 sat 95%. GENERAL: Patient is a well-developed, well-nourished female in no acute distress. HEAD: Normocephalic, atraumatic. EYES: Sclerae anicteric. MOUTH: Moist mucous membranes. No lesions noted. NECK: Supple. No palpable adenopathy. LUNGS: Clear bilaterally. CARDIOVASCULAR: Heart rate regular, 88 per minute, without murmur, S3, or S4. EXTREMITIES: No edema. NEUROLOGIC: Nonfocal. LABORATORY No lab today. 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 She completed treatment with anthracycline. She had relapse at age 14 at the base of her skull. She underwent further chemotherapy, followed by an autologous transplant. She has been disease-free since that time. 1. Recurrent Harrington sarcoma. Recent CT of the chest, spinal MRI, and brain MRI in June and July 2018 were all within normal limits. Dr. Lopez is planning to repeat MRI annually unless she develops any symptoms. 2. Pulmonary. CT scan of the chest on 06/30/18 showed some ground-glass opacities consistent with inflammatory process. Patient is asymptomatic, but will continue to monitor. 3. Cardiac. Echocardiograms have been stable and will be repeated every one to two years. She has had no symptoms related to this. 4. Situational depression. Patient began Lexapro 5 mg daily in August 2018. She initially had dizziness, but this has resolved. She has not noted much improvement in her symptoms, and we discussed a trial of increasing this to 10 mg daily. 5. Follow up with Dr. Lopez in one year for continued care, earlier if there is a problem. [facility]
== END 2018-10-16 13:41 | disposition home or self-care (01) ==
LOC: ONC 07:01
PROVIDERS: ATTEND Internal Medicine
DX: Z85.830 Personal history of malignant neoplasm of bone (principal); F32.9 Major depressive disorder, single episode, unspecified; Z92.21 Personal history of antineoplastic chemotherapy; Z98.1 Arthrodesis status; R91.8 Other nonspecific abnormal finding of lung field
CPT/HCPCS: 99212

== ENCOUNTER 2019-03-06 11:56 | Emergency (ER) | payer BC ==
[~2019-03-06 11:56] MED LIST changes: +ESCI20TA38 PO
--- NOTE | 2019-03-06 12:07 | ER Report ---
History and Physical Time Seen By MD: 12:05 Hx. of Stated Complaint: POSSIBLE ALLERGIC REACTION TO MOSQUITO BITES HPI/ROS CHIEF COMPLAINT: Allergic reaction HISTORY OF PRESENT ILLNESS: 23-year-old female patient presents to emergency room with complaint of allergic reaction. Patient states that she had taken a dog for a walk this morning. When she returned home she would've that she was bitten by several different mosquitoes. She states that she did apply some cortisone cream as well as some "Technu". She states that she started developing some hives. She went to shower and felt that the hives got worse. She did go and lay down for a little while. She states she felt that she was developing headache and checked her oxygen. At that time it was 60%. She felt that she was little bit low oxygen, however she didn't think she was at low. She said come in to be evaluated at that time. She did take some Benadryl which has seemed to help with the rash. REVIEW OF SYSTEMS: Respiratory: No cough, no dyspnea. Cardiovascular: No chest pain, no palpitations. Gastrointestinal: No vomiting, no abdominal pain. Musculoskeletal: No back pain. Allergies: Coded Allergies: albuterol (Verified Allergy, Unknown, 03/06/19) lorazepam (Verified Allergy, Unknown, 03/06/19) Uncoded Allergies: antibiotic unknown (Allergy, Mild, hives, 11/14/13) PLATELETS (Allergy, Unknown, 07/30/14) Home Meds Active Scripts Famotidine (PEPCID) 20 Mg Tablet, 20 MG PO QDAY, #14 TAB Prov:SAILAJA SHRESTHA [facility] 03/06/19 Prednisone (PREDNISONE) 20 Mg Tablet, 40 MG PO DAILY, #8 TAB Prov:SAILAJA SHRESTHA [facility] 03/06/19 Reported Medications Escitalopram Oxalate (LEXAPRO) 20 Mg Tablet, 5 MG PO QDAY, TAB 09/29/18 Aspirin (ASPIR 81) 81 Mg Tablet.dr, 81 MG PO QDAY, TAB 06/05/18 Budesonide (PULMICORT FLEXHALER) 90 Mcg Aer.pow.ba, 80 MCG IH BID, MCG INHALE 90 MCG TWICE DAILY 07/30/14 Discontinued Reported Medications [Rescue Inhaler] No Conflict Check 05/12/12 [Vit D] No Conflict Check, 0 Refills 9/29/11 Discontinued Scripts Levalbuterol Hcl (XOPENEX) 1.25 Mg/3 Ml Vial.neb, 1.25 MG IH Q4-6H, #20 VIAL Prov:SAILAJA SHRESTHA [facility] 06/28/18 Prednisone (PREDNISONE) 20 Mg Tablet, 40 MG PO DAILY, #10 TAB Prov:SAILAJA SHRESTHA [facility] 06/28/18 Azithromycin 250 Mg Tab (AZITHROMYCIN 250 MG TAB) 250 Mg Tablet, 1 TAB PO QDAY, #6 TAB Take 2 tabs today and then 1 tab a day until gone. Prov:SAILAJA SHRESTHA [facility] 06/28/18 Past Medical/Surgical History Patient has a past medical history of DVT, uterine sarcoma. Patient has a surgical history of craniotomy, Broviac placement and removal, cervical fusion, bone marrow transplant, infusion port placed and left thigh. Reviewed Nurses Notes: Yes Hx Smoking: No Smoking Status: Never Smoker Exposure to Second Hand Smoke?: No Constitutional Vital Sign - Last 24 Hours 03/06/19 03/06/19 03/06/19 03/06/19 11:59 12:00 12:30 13:00 Temp 97.8 Pulse 102 101 109 119 Resp 22 B/P (MAP) 128/77 115/63 (80) 105/61 (76) Pulse Ox 99 100 100 95 O2 Delivery Room Air Physical Exam General Appearance: The patient is alert, has no immediate need for airway protection and no current signs of toxicity. Respiratory: Chest is non tender, lungs are clear to auscultation. Cardiac: regular rate and rhythm Gastrointestinal: Abdomen is soft and non tender, no masses, bowel sounds normal. Musculoskeletal: Neck: Neck is supple and non tender. Extremities have full range of motion and are non tender. Skin: No lesions. Patient has redness to the underside of bilateral arms, she's got redness to her thighs, chest. There are some signs of excoriation. There is no obvious hives at this point in time. DIFFERENTIAL DIAGNOSIS: After history and physical exam differential diagnosis was considered for allergic reaction. Medical Decision Making ED Course/Re-evaluation ED Course Patient was admitted and examined, history and physical obtained. On examination lungs are clear, heart is regular, abdomen is soft nontender. Patient does have rash to the underside of bilateral lower arms as well as upper legs. Patient will get a rash on her chest, nothing on her back. With patient not in any distress we did up to go ahead and give her some oral prednisone as well as Pepcid. We continue to monitor for 30 minutes. After which time patient states she did have some improvement. The rash seemed to be improved on the arms as well as legs. Patient will be discharged home at this time. We will continue the prednisone burst, 40 mg daily for the next 4 days as well as Pepcid 20 mg daily for the next 2 weeks. Patient is follow-up with primary care provider in one week. She is return to emergency room if condition worsens. Patient verbalized understanding and agreement with plan. Decision to Disposition Date: Mar 06, 2019 Decision to Disposition Time: 13:00 Depart Departure Latest Vital Signs Vital Signs Date Time Temp Pulse Resp B/P (MAP) Pulse Ox O2 Delivery O2 Flow Rate FiO2 03/06/19 13:00 119 95 03/06/19 12:30 105/61 (76) 03/06/19 11:59 97.8 22 Room Air Impression: Primary Impression: Allergic drug rash Condition: Improved Disposition: HOME OR SELF-CARE Referrals: TODD HAWK MD (PCP) New Scripts Famotidine (PEPCID) 20 Mg Tablet 20 MG PO QDAY, #14 TAB Prov: SAILAJA SHRESTHA 03/06/19 Prednisone (PREDNISONE) 20 Mg Tablet 40 MG PO DAILY, #8 TAB Prov: SAILAJA SHRESTHA 03/06/19 Patient Instructions: General Allergic Reaction (ED) Additional Instructions: Take medication as prescribed. Avoid taking the Technu. Follow up with your primary care provider in the next week. Return to the ER if condition worsens. Increase fluid intake. Use Mosquito repellant when outside. Continue with your normal medications. SAILAJA SHRESTHA Mar 06, 2019 12:07
[2019-03-06] MEDS ORDERED: predniSONE 20 MG TAB PO ONE (12:20)
[2019-03-06] MEDS ORDERED: FAMOTIDINE 20 MG TAB PO ONE (12:20)
[2019-03-06 12:30] VITALS: BP 105/61
[2019-03-06] MEDS ORDERED: FAMO20TA28 PO (12:43)
[2019-03-06] MEDS ORDERED: PRED20TA6 PO (12:43)
== END 2019-03-06 13:08 | disposition home or self-care (01) ==
LOC: ER 11:59
DX: T78.40XA Allergy, unspecified, initial encounter (principal)
CPT/HCPCS: 99283; J7512